=== PATIENT | male | born 1935 | race Caucasian/White ===

== ENCOUNTER 2019-10-10 20:27 | Inpatient (IN) | payer MEDICARE, OTHER ==
[2019-10-10] MEDS ORDERED: SODIUM CHLORIDE 0.9% (FLUSH) 10 ML SYG IV PRN (20:34)
--- NOTE | 2019-10-10 20:36 | ED.PDOC ---
History of Present Illness - General Time Seen by Provider: 10/10/19 20:34 Source: alf records - History of Present Illness Initial Comments: 84-year-old male with PMH of hypertension, COPD, dementia who was sent over from a alf in [place], [place] for cc of shortness of breath and hypoxia. Little is known about this patient's history at this time. Patient has underlying dementia and is very poor historian. He is awake and alert but only able to answer very simple yes/no questions. He currently reports some shortness of breath is his only complaint. He denies any pain, specifically chest pain or abdominal pain. He does give me consent to discuss his health care and medical records with his children. The alf transport team brought a document that states the patient was discharged from [facility] 2 days ago back to the alf in [place]. It is currently unknown why he was admitted to the hospital and for how long and what treatment he received there. The alf reports that he has had gradually worsening respiratory status since this afternoon. He has had reported hypoxia in the 70s to 80s% SPO2 all day long at the alf. He has also had intermittent episodes of hypotension. He has received Ativan 2 mg IV, a nebulized treatment, Decadron 8 mg IV, and Solu-Medrol 125 mg IV at the alf with little improvement in symptoms. Dr. Briones was called who stated the patient could be transported to our ED since he reported tested positive for COVID-19 recently, although there is no record in his chart of when the test was done. Patient is documented to have an out of hospital DNR in his chart. More information obtained from patient's son, Italo Cook ([phone]), shortly after patient arrival. He states that the patient had a seizure-like episode 1 week ago and was initially seen in the [place] ED. He was diagnosed with TIA and transferred up to [facility] for further care. There he was also diagnosed with acute bronchitis and confirmed positive for COVID-19 on 10/04/2019. He was also diagnosed with pneumonia and received antibiotics and steroids while he was in the hospital. He was discharged from there back to only alf on 10/08/2019. The son states this morning he had another seizure-like event and was brought back to [place] ED, where work-up was reportedly pretty unremarkable and patient was sent back to the alf. He reportedly continued to have intermittent episodes of hypoxia and low blood pressure at the alf. EMS was called out but reportedly his vital signs were stable and the decision was made not to transport the patient back to the ED there. Thus the nurses at the alf spoke with Dr. Briones who advised that the patient could be transported to the ED here for further evaluation. Son does report that the patient has history of pretty significant dementia, but is usually pleasant. He has recently been started on Keppra twice daily for seizure disorder. The only recent seizure activities that the son is aware of is the seizure today x1 and 1 week ago x1. The son does confirm the patient's DNR CODE STATUS over the phone with me. Allergies/Adverse Reactions: Allergies NO KNOWN ALLERGY Allergy (Verified 11/11/14 21:44) Home Medications: Ambulatory Orders Lisinopril 10 mg PO BID 11/11/14 Pindolol [Visken] 5 mg PO DAILY 11/11/14 Albuterol Sulfate Nebs [Proventil Nebs] 2.5 mg INH PRN PRN 10/11/19 Apixaban [Eliquis] 2.5 mg PO BID 10/11/19 Aspirin [Aspirin Childrens] 81 mg PO DAILY 10/11/19 Cetirizine HCl [ZyrTEC] 10 mg PO BEDTIME 10/11/19 Clonidine HCl 0.1 mg PO PRN 10/11/19 Dexamethasone 6 mg PO DAILY 10/11/19 Dextran 70-Hypromellose [Artificial Tears 0.1-0.3 %] 1 beatrice OP QID 10/11/19 Docusate Sodium 100 mg PO DAILY 10/11/19 Ferrous Sulfate 325 mg PO DAILY 10/11/19 Kpvgpqwvbvx-Ynquukheyqbk-Yxsaa [Trelegy Ellipta 100-62.5-25 Mcg/INH] 1 aer IN DAILY 10/11/19 Furosemide [Lasix] 20 mg PO DAILY 10/11/19 Guaifenesin [Mucinex] 600 mg PO BID 10/11/19 Ibuprofen 400 mg PO PRN PRN 10/11/19 Ketotifen Fumarate (Ophth) [Ketotifen Fumarate] 0.025 % OP BID 10/11/19 Levetiracetam [Keppra] 500 mg PO BID 10/11/19 Loperamide HCl [Imodium A-D] 2 mg PO PRN PRN 10/11/19 Meloxicam 7.5 mg PO DAILY 10/11/19 Sodium Chloride 1 gm PO DAILY 10/11/19 Zinc Sulfate 220 mg PO DAILY 10/11/19 Review of Systems - Review of Systems Review of Systems: 10/10/19 21:10 As per HPI All other Systems: Reviewed and Negative Past Medical History (General) - Patient Medical History Hx Seizures: No Hx Stroke: Yes - TIA Hx Dementia: Yes Hx Asthma: No Hx of COPD: No Hx Cardiac Disorders: Yes - left endartectomy 2009 Hx Congestive Heart Failure: No Hx Pacemaker: No Hx Hypertension: Yes Hx Thyroid Disease: No Hx Diabetes: No Hx Gastroesophageal Reflux: No Hx Renal Disease: No Hx of HIV: No Hx MRSA: No - Social History Hx Tobacco Use: Yes Hx Alcohol Use: No Hx Substance Use: No Hx Depression: Yes Hx Physical Abuse: No Hx Emotional Abuse: No Family Medical History - Family History Mother Family History: Unknown Living Status: Father Family History: Unknown Living Status: Physical Exam - Physical Exam General Appearance: Alert, Comfortable, No apparent distress Eye Exam: bilateral normal Ears, Nose, Throat: normal ENT inspection Neck: non-tender, full range of motion, supple, normal inspection Respiratory: other - Diminished throughout with faint bibasilar crackles noted, no wheezing or rhonchi appreciated. Patient with slightly labored breathing with tachypnea but no noted accessory muscle use Cardiovascular/Chest: normal peripheral pulses, regular rate, rhythm, no edema, no gallop, no murmur Peripheral Pulses: radial,right: 2+, radial,left: 2+ Gastrointestinal/Abdominal: non tender, soft, no organomegaly Back Exam: normal inspection, no CVA tenderness, no vertebral tenderness Extremity: normal range of motion, non-tender, normal inspection, no pedal edema, no calf tenderness, normal capillary refill Neurologic: animal rides manager II-XII nml as tested, no motor/sensory deficits, normal mood/affect, disoriented x 3 Skin Exam: normal color, warm/dry Progress - Progress Progress: 10/10/19 21:12 Acute hypoxic respiratory distress -Suspect due to COVID-19. Consider also pneumonia, sepsis, other viral illness, ACS, CHF, COPD, PE, other. -SPO2 80% on room air upon arrival-improved to 90% on 4 L by nasal cannula, remainder vital stable. -Obtain stat cardiac and sepsis work-up, respiratory panel, strep, UA, 1 L normal saline bolus 10/10/19 23:21 -Patient reexamined, remains in no distress. His SPO2 is 100% on nonrebreather O2 facemask. Blood pressure remains borderline low, 100s/40s, remainder vitals stable. -CT head imaging obtained given his recent seizure activity and history of TIAs. No acute processes noted, chronic ischemic changes noted. -Lab work reveals leukopenia with left shift. Inflammatory markers are elevated. Lactic acid level 1.5. This is consistent with COVID-19 pneumonia. Findings of CKD and mild LFT elevation also noted. -Spoke with Mckay Porras, hospitalist, who accepts the patient for admission for COVID-19 pneumonia causing acute hypoxia. I did give the patient an initial dose of IV Zosyn in the ED for broad-spectrum coverage given his hypoxia and hypotension. As there is no clear evidence of bacterial infection, will defer to hospitalist for further continuation of antibiotics. Mckay Porras states he will likely switch the patient to azithromycin given possible benefit in COVID- 19 patients. 10/11/19 00:31 -Respiratory panel collected here is also positive for COVID-19. Grover Stevenson MD Billing #[id number] 10/10/19 20:34 IV Care:Saline Lock per Protoc QSHIFT Telemetry .ONCE Sodium Chloride 0.9% (Flush) [Saline Flush Syringe] 10 ml IV PRN PRN Pulse Oximetry Assessment DAILY 10/10/19 20:45 EKG STAT 10/10/19 21:20 BLOOD CULTURE Stat 10/10/19 21:29 RESPIRATORY PANEL 2 Stat STREP A SCREEN CULTURE Stat 10/11/19 09:00 Pulse Ox Daily Laboratory Results - last 24 hr 10/10/19 10/10/19 10/10/19 21:20 21:20 21:20 WBC 2.7 L RBC 3.72 L Hgb 11.8 L Hct 35.1 L MCV 94.1 H MCH 31.7 H MCHC 33.7 RDW 14.2 Plt Count 137 MPV 9.6 Absolute Neuts (auto) 2.30 Absolute Lymphs (auto) 0.30 L Absolute Monos (auto) 0.10 L Absolute Eos (auto) 0.00 Absolute Basos (auto) 0.00 Neutrophils % 84.3 H Lymphocytes % 12.0 L Monocytes % 2.8 Eosinophils % 0.0 L Basophils % 0.9 Fibrinogen Sodium 138 Potassium 4.8 Chloride 108 Carbon Dioxide 20 L Anion Gap 14.8 BUN 45 H Creatinine 1.50 H BUN/Creatinine Ratio 30.0 H Random Glucose 137 H Serum Osmolality 289.4 Lactic Acid 1.5 Calcium 8.1 L Total Bilirubin 0.5 AST 73 H ALT 67 H Alkaline Phosphatase 65 LD Total C-Reactive Protein B-Natriuretic Peptide 20.6 Serum Total Protein 6.5 Albumin 3.6 Globulin 2.9 Albumin/Globulin Ratio 1.2 Group A Strep Rapid 10/10/19 10/10/19 10/10/19 21:20 21:20 21:29 WBC RBC Hgb Hct MCV MCH MCHC RDW Plt Count MPV Absolute Neuts (auto) Absolute Lymphs (auto) Absolute Monos (auto) Absolute Eos (auto) Absolute Basos (auto) Neutrophils % Lymphocytes % Monocytes % Eosinophils % Basophils % Fibrinogen 380 Sodium Potassium Chloride Carbon Dioxide Anion Gap BUN Creatinine BUN/Creatinine Ratio Random Glucose Serum Osmolality Lactic Acid Calcium Total Bilirubin AST ALT Alkaline Phosphatase LD Total 269 H C-Reactive Protein 4.1 H B-Natriuretic Peptide Serum Total Protein Albumin Globulin Albumin/Globulin Ratio Group A Strep Rapid Negative - EKG/XRAY/CT EKG: Sinus - Normal sinus rhythm, heart rate 65, no ST elevations or Q waves noted, axis normal, intervals normal, compared to 11/11/2014 EKG appears largely unchanged. XRAY: chest - Faint bilateral lower lobe hazy linear opacifications nonspecific in nature, atelectasis versus infiltrate, per my read Departure - Departure Clinical Impression: COVID-19, Pneumonia due to 2019 novel coronavirus, Hypoxia Time of Disposition: 23:21 Disposition: Admit Patient Condition: Poor Home Medications: Ambulatory Orders Lisinopril 10 mg PO BID 11/11/14 Pindolol [Visken] 5 mg PO DAILY 11/11/14 Albuterol Sulfate Nebs [Proventil Nebs] 2.5 mg INH PRN PRN 10/11/19 Apixaban [Eliquis] 2.5 mg PO BID 10/11/19 Aspirin [Aspirin Childrens] 81 mg PO DAILY 10/11/19 Cetirizine HCl [ZyrTEC] 10 mg PO BEDTIME 10/11/19 Clonidine HCl 0.1 mg PO PRN 10/11/19 Dexamethasone 6 mg PO DAILY 10/11/19 Dextran 70-Hypromellose [Artificial Tears 0.1-0.3 %] 1 beatrice OP QID 10/11/19 Docusate Sodium 100 mg PO DAILY 10/11/19 Ferrous Sulfate 325 mg PO DAILY 10/11/19 Pcsibglqnbf-Vebmaawckmdt-Rqjxw [Trelegy Ellipta 100-62.5-25 Mcg/INH] 1 aer IN DAILY 10/11/19 Furosemide [Lasix] 20 mg PO DAILY 10/11/19 Guaifenesin [Mucinex] 600 mg PO BID 10/11/19 Ibuprofen 400 mg PO PRN PRN 10/11/19 Ketotifen Fumarate (Ophth) [Ketotifen Fumarate] 0.025 % OP BID 10/11/19 Levetiracetam [Keppra] 500 mg PO BID 10/11/19 Loperamide HCl [Imodium A-D] 2 mg PO PRN PRN 10/11/19 Meloxicam 7.5 mg PO DAILY 10/11/19 Sodium Chloride 1 gm PO DAILY 10/11/19 Zinc Sulfate 220 mg PO DAILY 10/11/19 Decision To Admit - Decistion To Admit Decision to Admit Reason: Admit from ER Decision to Admit Date: 10/10/19 Decision to Admit Time: 23:21
[2019-10-10] MEDS ORDERED: SODIUM CHLORIDE 0.9% 1000ML 1,000 ML IVS ONE (21:03)
--- NOTE | 2019-10-10 21:50 | RAD ---
EXAM DESCRIPTION: Chest,1 View CLINICAL HISTORY: 84 years Male, dyspnea, hypoxia, COVID-19 COMPARISON: 11/11/2014 TECHNIQUE: Single AP chest radiograph. FINDINGS: Hazy bibasilar lung opacities. No pneumothorax or pleural effusion. Normal cardiomediastinal contour. Normal osseous structures. IMPRESSION: 1. Bibasilar lung opacities, concerning for viral pneumonitis. Electronically signed by: Woo Jefferson MD 10/10/2019 9:48 PM CDT
[2019-10-10] MEDS ORDERED: PIPERACILLIN/TAZOBACTAM 3.375 GM in SODIUM CHLORIDE 0.9% 100ML 100 ML IVPB ONE (22:15)
--- NOTE | 2019-10-10 23:23 | CT ---
EXAM: Head HISTORY: 84 years Male altered mental status, hx of TIA's, seizures COMPARISON: 11/11/2014 July 23, 2019. TECHNIQUE: Contiguous axial images of the head were obtained from the skull base through the vertex without IV contrast followed by multiplanar reformats. This exam was performed according to our departmental dose-optimization program, which includes automated exposure control, adjustment of the mA and/or kV according to patient size and/or use of iterative reconstruction technique. FINDINGS: Generalized parenchymal volume loss. No hydrocephalus. No midline shift, mass effect or abnormal extraaxial collection. No acute intracranial hemorrhage or infarct. Advanced scattered chronic microvascular ischemic white matter changes. 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 Intracranial atherosclerosis. Orbital contents are unremarkable. The paranasal sinuses and mastoid air cells are well pneumatized. No acute calvarial abnormality. IMPRESSION: 1. No acute intracranial pathology by CT assessment. Consider MRI. 2. Advanced chronic microangiopathic ischemic white matter changes and multiple old infarcts. Electronically signed by: Woo Jefferson MD 10/10/2019 11:21 PM CDT
--- NOTE | 2019-10-11 00:08 | HP ---
SUPERVISING PHYSICIAN: Sumit Briones M.D. CHIEF COMPLAINT: Hypoxia and hypertension. HISTORY OF PRESENT ILLNESS: Mr. Cook is an 84 year-old male patient who has a reported history of hypertension, chronic obstructive pulmonary disease and dementia. The patient is a resident of a longterm in [place], [place] who has dementia and is a very poor historian, therefore all of the History of Present Illness and review of systems were obtained through a review of the Emergency Room notes and longterm records. Mr. Cook resides at the longterm at [facility] in [place], [place]. He has a history of recurrent shortness of breath and hypoxia. He was actually sent to [facility] on 10/04/19 for a questionable seizure after he was seen in the Emergency Room in [place], [place]. He was treated for COVID pneumonia when he was found to have positive COVID test and was noted to have underlying community acquired pneumonia as well as bronchitis. He was treated with steroids, antibiotics and then discharged back to [place], [place] at the longterm on the . On 10/10/19, he had a seizure-like activity with no details noted, was taken back to the Emergency Room in [place] where he was found to be mildly hypoxic and hypertensive. He was treated and then transported back to the longterm. On 10/11/19, he continued to have hypoxia noted in the longterm in the 70s with some hypotension and then after discussion was taken to the Emergency Room there and again transported back to the longterm after they found that he had normal vital signs. Once again at the longterm after discharge from the Emergency Room there in [place], he again had some episodes of hypoxia and hypotension. The longterm at that point put him a transport van and took him to the Emergency Room at [facility] where he was seen and evaluated. He was once again found to be positive for COVID-19. His initial vital signs on the Emergency Room did show that he was satting 78% even with 2 liters nasal cannula. He had some mild hypotension with a blood pressure of 100/42 with a heart rate of 46 requiring nonrebreather showing 92% on 10 liters on the nonrebreather. His initial workup in the Emergency Room did show that he had neutropenia with a white count of 2.7 with decreased lymphocytes. Coagulation studies showed he had an elevated D-dimer at 750, fibrinogen was normal at 352, PTT was normal at 223. Chemistries showed that he had a BUN of 45, creatinine 1.5. Liver functions were showing some elevation of his AST and ALT. LDH was also elevated at 269 as well as C reactive protein at 4.1, but his troponin was 0.04. He was notably hypoxic and with a positive COVID and underlying pneumonia that was once again seen on x-ray that showed per radiology interpretation bibasilar lung opacities concerning for viral pneumonitis. He is going to be admitted to the COVID-19 floor and started on treatment for underlying COVID pneumonia having failed to respond to previous treatment plan. He was already on Eliquis at the longterm. He is in stable condition at time of admission and code status is a DNR. PAST MEDICAL HISTORY: Again is limited due to the fact that he has dementia and his system review is from medical records showed: 1. History of hypertension. 2. Chronic obstructive pulmonary disease. 3. Dementia. 4. Previous transient ischemic attack. 5. Previous COVID infection. PAST SURGICAL HISTORY: 1. Endarterectomy. CURRENT MEDICATIONS: ALLERGIES: FAMILY HISTORY: SOCIAL HISTORY: The patient resides in a longterm in [place], [place]. He is . He has no history of alcohol or tobacco abuse. REVIEW OF SYSTEMS: CONSTITUTIONAL: Positive for general malaise, reported subjective fever. No noted unintentional weight loss. HEENT: No reported ear aches, sore throat, nasal congestion, headaches or vision changes. RESPIRATORY: As noted in History of Present Illness, increasing shortness of breath with some reported wheezing and desaturations. CARDIOVASCULAR: No reported chest pains, syncopal episodes, tachycardia or palpitations. GASTROINTESTINAL: No reported nausea, vomiting, diarrhea, constipation or abdominal pain. GENITOURINARY: No reported dysuria, hematuria, polyuria. MUSCULOSKELETAL: No reported arthralgias or joint swelling. NEUROLOGIC: History of dementia with no reported ataxia, but has reportedly at some point in the last month had some seizure-like activity which was not described with a questionable transient ischemic attack. No reported residual focal deficits. SKIN: No reported lesions, rashes, moles or unexplained changes. HEMATOLOGIC: No reported easy bruising, unexplained bleeding or transfusion reactions. PHYSICAL EXAMINATION: VITAL SIGNS: Showed 78% O2 saturation with blood pressure 100/42, heart rate 42, temperature 97.2. GENERAL: The patient appears to be alert in no acute distress. HEENT: Tympanic membranes clear bilaterally. Oropharynx is pink, moist without any lesions. NECK: Supple, nontender with full range of motion. No jugular venous distention noted. CHEST: Lung sounds were diminished throughout with some faint basilar crackles noted. No obvious wheezing or rales or rhonchi. Initially on admission he did show some mild labored breathing with some tachypnea and being tachypneic, but was not in any obvious respiratory distress. HEART: Regular rate and rhythm with no appreciable murmurs, gallops, or rubs. ABDOMEN: Soft, nontender. Positive bowel sounds. EXTREMITIES: There is no cyanosis, clubbing or edema. BACK: With no noted CVA tenderness or vertebral tenderness. NEUROLOGIC: Cranial nerves II-XII appear to be grossly intact with no obvious sensory deficits. He is disoriented to all by himself, but is very pleasant. Again, no obvious neurological focal motor deficits are noted. SKIN: Warm, pink and dry. LABORATORY: White count on admission was 2,700, hemoglobin 11.8, hematocrit 35.1, platelet count 137,000. Differential does show a left shift with decreased neutrophils. Coagulation studies did show an elevated D-dimer at 770 but normal PTT at 23 and fibrinogen at 380. Chemistries showed normal electrolytes with BUN of 45, creatinine 1.5. Lactic acid was normal at 1.5, calcium was a little low at 8.1. Liver functions did show AST and ALT elevation with AST at 73 and ALT of 67. BNP was normal at 20 with initial C reactive protein at 4.1. Troponin was 0.04. Urinalysis was within normal limits. Group A Strep was negative. RADIOLOGY: Initial chest x-ray in the Emergency Room per radiology interpretation showed bibasilar lung opacities concerning for viral pneumonitis. ASSESSMENT: 1. COVID-19 pneumonitis. 2. Acute chronic obstructive pulmonary disease exacerbation with bilateral pneumonia secondary to #1. 3. Neutropenia likely secondary to ongoing COVID infection with an elevated D-dimer and C reactive protein currently on Eliquis. 4. History of dementia. 5. History of previous transient ischemic attack without any residual effects. 6. History of hypertension showing to be mildly hypertensive on admission. PLAN: Mr. Cook is going to be admitted to isolation on the COVID floor for initiation of COVID pneumonia protocols. He is already on Eliquis. Will go ahead and put him on antibiotic coverage with azithromycin and Rocephin. He will be on Decadron 6 mg daily. Will resume his home medications once those have been updated and verified. I would anticipate his length of stay to be at least 2 to 5 days. Will monitor his inflammatory markers and coagulation studies as per protocol. Until we can transition him back to outpatient management will continue to monitor and treat as needed. #[id number] [facility]
[2019-10-11] MEDS ORDERED: MAGNESIUM HYDROXIDE 30 ML UD PO PRN (00:44)
[2019-10-11] MEDS ORDERED: SODIUM CHLORIDE 0.9% (FLUSH) 10 ML SYG IV PRN (00:44)
[2019-10-11] MEDS ORDERED: ONDANSETRON INJ 4 MG/2 ML VIAL IV PRN (00:44)
[2019-10-11] MEDS ORDERED: ALBUTEROL INHALER 64 PUFF/8GM INH PRN (00:55)
[2019-10-11] MEDS ORDERED: levETIRAcetam 250 MG TAB PO ONE (00:59)
[2019-10-11] MEDS ORDERED: ENOXAPARIN SODIUM 40 MG/0.4 ML SYG SUBCU SCH (01:00)
[2019-10-11] MEDS ORDERED: cefTRIAXone SODIUM 1 GM VIAL ONE (02:18)
[2019-10-11] MEDS ORDERED: AZITHROMYCIN IV 500 MG VIAL IVPB ONE (02:18)
[2019-10-11] MEDS ORDERED: SODIUM CHLORIDE 0.9% 250ML 250 ML ONE (02:18)
[2019-10-11] MEDS ORDERED: SODIUM CHL 0.9% 50ML MIN-BAG+ 50 ML IVPB ONE (02:18)
[2019-10-11] MEDS: IV SET AND CAP CHANGE INJ INJ SCH (02:21)
[2019-10-11] MEDS: cefTRIAXone SODIUM 1 GM in SODIUM CHL 0.9% 50ML MIN-BAG+ 50 ML IVPB SCH ×2 (02:21→23:51)
[2019-10-11] MEDS: AZITHROMYCIN IV 500 MG in SODIUM CHLORIDE 0.9% 250ML 250 ML IVPB SCH (03:04)
[2019-10-11] MEDS: PANTOPRAZOLE SODIUM IV 40 MG VIAL IV SCH (06:31)
--- NOTE | 2019-10-11 07:23 | RAD ---
EXAM: XR Chest, 1 View CLINICAL HISTORY: The patient is 84 years old and is Male; COVID PNA TECHNIQUE: Single portable view of the chest. COMPARISON: October 10, 2019 9:22 PM. FINDINGS: Lungs: Unremarkable. No consolidation. Pleural space: Unremarkable. No pneumothorax. Heart: Unremarkable. No cardiomegaly. Mediastinum: Unremarkable. Bones/joints: The bones and joints are unchanged as visualized. Upper abdomen: No free air in the visualized upper abdomen. IMPRESSION: No acute cardiopulmonary process identified. Electronically signed by: Jasmyn Angelo MD 10/11/2019 7:22 AM CDT
[2019-10-11] MEDS: DEXAMETHASONE INJ 10 MG/ML VIAL IV SCH (09:34)
[2019-10-11] MEDS: DOCUSATE SODIUM 100 MG CAP PO SCH (09:34)
[2019-10-11] MEDS: LISINOPRIL 10 MG TAB PO SCH ×2 (09:34→21:39)
[2019-10-11] MEDS: levETIRAcetam 250 MG TAB PO SCH ×2 (09:35→21:07)
[2019-10-11] MEDS: guaiFENesin ER TAB 600 MG TAB PO SCH ×2 (09:35→21:39)
[2019-10-11] MEDS: APIXABAN 5 MG TAB PO SCH ×2 (09:35→21:39)
[2019-10-11] MEDS: ASPIRIN (CHEWABLE) 81 MG TAB PO SCH (09:35)
[2019-10-11] MEDS: FUROSEMIDE 40 MG TAB PO SCH (09:35)
[2019-10-11] MEDS: FERROUS SULFATE 325 MG TAB PO SCH (09:36)
[2019-10-11] MEDS: KETOTIFEN FUMARATE 0.025% OP SCH ×2 (09:36→21:39)
[2019-10-11] MEDS: ZINC 50 MG CAPSULE PO SCH (09:36)
[2019-10-11] MEDS: PINDOLOL 5 MG PO SCH (09:37)
[2019-10-11] MEDS: POLYVINYL ALCOHOL 1.4% OPHTH SOL 1 DROP BOTH_EYES SCH ×4 (09:37→21:39)
[2019-10-11] MEDS: ALBUTEROL INHALER 64 PUFF/8GM INH SCH ×4 (10:04→20:30)
[2019-10-11] MEDS ORDERED: ALPRAZolam 0.25 MG TAB PO ONE (15:34)
[2019-10-11] MEDS ORDERED: ALPRAZolam 0.25 MG TAB ONE (15:37)
[2019-10-11] MEDS ORDERED: CETIRIZINE HCL 10 MG TAB PO ONE (19:07)
[2019-10-11] MEDS: ALPRAZolam 0.25 MG TAB PO PRN (21:07)
[2019-10-11] MEDS: CETIRIZINE HCL 10 MG TAB PO SCH (21:39)
[2019-10-12] MEDS: AZITHROMYCIN IV 500 MG in SODIUM CHLORIDE 0.9% 250ML 250 ML IVPB SCH (00:21)
[2019-10-12] MEDS: PANTOPRAZOLE SODIUM IV 40 MG VIAL IV SCH (06:09)
[2019-10-12] MEDS: ALBUTEROL INHALER 64 PUFF/8GM INH SCH ×4 (08:35→22:00)
[2019-10-12] MEDS: FUROSEMIDE 40 MG TAB PO SCH (09:25)
[2019-10-12] MEDS: ASPIRIN (CHEWABLE) 81 MG TAB PO SCH (09:25)
[2019-10-12] MEDS: ZINC 50 MG CAPSULE PO SCH (09:26)
[2019-10-12] MEDS: DOCUSATE SODIUM 100 MG CAP PO SCH (09:26)
[2019-10-12] MEDS: FERROUS SULFATE 325 MG TAB PO SCH (09:26)
[2019-10-12] MEDS: LISINOPRIL 10 MG TAB PO SCH ×2 (09:26→20:13)
[2019-10-12] MEDS: guaiFENesin ER TAB 600 MG TAB PO SCH ×2 (09:26→20:13)
[2019-10-12] MEDS: APIXABAN 5 MG TAB PO SCH ×2 (09:26→20:14)
[2019-10-12] MEDS: levETIRAcetam 250 MG TAB PO SCH ×2 (09:27→20:13)
[2019-10-12] MEDS: DEXAMETHASONE INJ 10 MG/ML VIAL IV SCH (10:07)
[2019-10-12] MEDS: KETOTIFEN FUMARATE 0.025% OP SCH ×2 (10:07→23:27)
[2019-10-12] MEDS: PINDOLOL 5 MG PO SCH (10:08)
[2019-10-12] MEDS ORDERED: CARBOXYMETHYLCELLULOSE 0.5% OPHTH SOL 0.4 ML UD ONE (12:09)
[2019-10-12] MEDS: POLYVINYL ALCOHOL 1.4% OPHTH SOL 1 DROP BOTH_EYES SCH ×2 (12:12→14:46)
[2019-10-12] MEDS: CARBOXYMETHYLCELLULOSE 0.5% OPHTH SOL 0.4 ML UD OPHTH SCH ×2 (16:17→20:15)
[2019-10-12] MEDS: CETIRIZINE HCL 10 MG TAB PO SCH (20:14)
[2019-10-12] MEDS: cefTRIAXone SODIUM 1 GM in SODIUM CHL 0.9% 50ML MIN-BAG+ 50 ML IVPB SCH (23:31)
[2019-10-13] MEDS: AZITHROMYCIN IV 500 MG in SODIUM CHLORIDE 0.9% 250ML 250 ML IVPB SCH (00:03)
[2019-10-13] MEDS: PANTOPRAZOLE SODIUM IV 40 MG VIAL IV SCH (05:43)
--- NOTE | 2019-10-13 07:13 | RAD ---
EXAM: XR Chest, 1 View CLINICAL HISTORY: covid PNA TECHNIQUE: Frontal view of the chest. COMPARISON: 10/11/2019. FINDINGS: Lungs: Diffuse interstitial thickening is stable. There is increasing density left base partly related to overlapping shadows. Pleural space: Unremarkable. No pneumothorax. Heart: Stable cardiac shadow. Mediastinum: Unremarkable. Bones/joints: Unremarkable. IMPRESSION: Stable diffuse interstitial thickening and probable new focus of consolidation left lung base. Findings are nonspecific and can be seen with covid or other viral/atypical pneumonia. CT would better characterize if additional imaging is clinically warranted. Electronically signed by: Michaela Khoury MD 10/13/2019 7:11 AM CDT
[2019-10-13] MEDS: ALBUTEROL INHALER 64 PUFF/8GM INH SCH ×4 (07:50→20:30)
[2019-10-13] MEDS: ZINC 50 MG CAPSULE PO SCH (08:57)
[2019-10-13] MEDS: FUROSEMIDE 40 MG TAB PO SCH (08:57)
[2019-10-13] MEDS: ASPIRIN (CHEWABLE) 81 MG TAB PO SCH (08:57)
[2019-10-13] MEDS: LISINOPRIL 10 MG TAB PO SCH ×2 (08:57→20:27)
[2019-10-13] MEDS: CARBOXYMETHYLCELLULOSE 0.5% OPHTH SOL 0.4 ML UD OPHTH SCH ×2 (08:58→20:28)
[2019-10-13] MEDS: DOCUSATE SODIUM 100 MG CAP PO SCH (08:58)
[2019-10-13] MEDS: levETIRAcetam 250 MG TAB PO SCH ×2 (08:58→20:26)
[2019-10-13] MEDS: APIXABAN 5 MG TAB PO SCH ×2 (08:58→20:26)
[2019-10-13] MEDS: PINDOLOL 5 MG PO SCH (08:58)
[2019-10-13] MEDS: DEXAMETHASONE INJ 10 MG/ML VIAL IV SCH (08:58)
[2019-10-13] MEDS: FERROUS SULFATE 325 MG TAB PO SCH (08:58)
[2019-10-13] MEDS: guaiFENesin ER TAB 600 MG TAB PO SCH ×2 (08:58→20:27)
[2019-10-13] MEDS: KETOTIFEN FUMARATE 0.025% OP SCH ×2 (08:58→20:29)
--- NOTE | 2019-10-13 09:08 | PN ---
SUPERVISING PHYSICIAN: Sumit Briones MD DATE: 10/12/19 SUBJECTIVE: The patient seems to be doing okay. He is not really verbal and showed to be running a low-grade fever. He is maintaining 02 saturations with 2-liter nasal cannula fairly well. His blood pressure has been stable since admission. OBJECTIVE: VITAL SIGNS: Temperature 100.6, pulse 84, blood pressure 154/74, respirations 20, oxygen saturation 93% on 2-liter nasal cannula. GENERAL: The patient is resting comfortably and does not appear to be in any acute distress. CHEST: Lung sounds a little bit improved today, just diminished towards the bases. I do not hear any rhonchi, rales or crackles. HEART: Regular rate and rhythm. ABDOMEN: Soft, non-tender, positive bowel sounds. EXTREMITIES: Without edema. NEUROLOGIC: No obvious neurological deficits. He is very pleasant but is disoriented to all but himself. LABORATORY: White count is actually up to 4.6, hemoglobin 11.1, hematocrit 32.7, platelet count 155,000, differential does show to be without a shift, coagulation studies showed an elevation in D-dimer a little bit today at 783. Chemistries reveal normal electrolytes today with BUN of 36, creatinine now normalized at 1.2. Troponin 0.04, C-reactive protein down from 4.1 to 1.4. MICROBIOLOGY: Blood cultures pending. RADIOLOGY: No additional radiographic studies today. ASSESSMENT: 1. COVID-19 pneumonitis. 2. Acute chronic obstructive pulmonary disease exacerbation with bilateral pneumonia secondary to #1. 3. Neutropenia likely secondary to ongoing COVID infection with an elevated D-dimer and C reactive protein currently on Eliquis. 4. History of dementia. 5. History of previous transient ischemic attack without any residual effects. 6. History of hypertension showing to be mildly hypertensive on admission. PLAN: We will continue with current plan of care at this point with our pneumonia protocol for Covid. He will remain on Eliquis and will continue with that dose. Will monitor and treat with Rocephin and Decadron. His lab it showing some slightly improvement. I would hope we could be able to discharge him back to [facility] within the next 24 to 48 hours but certainly will monitor his labs and treat accordingly until we can. #[id number] MTDD
[2019-10-13] MEDS ORDERED: VANCOMYCIN PER PHARMACY INJ SCH (10:30)
[2019-10-13] MEDS ORDERED: CEFEPIME 2 GM VIAL ONE (12:08)
[2019-10-13] MEDS: VANCOMYCIN HCL INJ 750 MG in SODIUM CHLORIDE 0.9% 250ML 250 ML IVPB SCH (16:42)
[2019-10-13] MEDS: CETIRIZINE HCL 10 MG TAB PO SCH (20:27)
[2019-10-14] MEDS: cefTRIAXone SODIUM 1 GM in SODIUM CHL 0.9% 50ML MIN-BAG+ 50 ML IVPB SCH (00:09)
[2019-10-14] MEDS: AZITHROMYCIN IV 500 MG in SODIUM CHLORIDE 0.9% 250ML 250 ML IVPB SCH (00:51)
[2019-10-14] MEDS: IV SET AND CAP CHANGE INJ INJ SCH (01:01)
[2019-10-14] MEDS: PANTOPRAZOLE SODIUM IV 40 MG VIAL IV SCH (06:19)
[2019-10-14] MEDS: ACETAMINOPHEN 325 MG TAB PO PRN (06:19)
--- NOTE | 2019-10-14 07:14 | RAD ---
: 1935. Technique: Portable AP chest x-ray. Comparison: October 13, 2019. November 11, 2014. Clinical history: covid PNA. Heart size: Heart size is within normal limits. Lungs: There is diffuse septal prominence consistent with interstitial pneumonitis and possible component of background interstitial scarring. Note is made of attenuation at the left base due to the patient's hand. Pleura: No pleural effusion. No pneumothorax. Mediastinum and tenzin: Unremarkable. Skeletal: Unremarkable. Support tubings: None. Impression: 1. Interstitial pneumonitis. Electronically signed by: Louis Parry MD 10/14/2019 7:13 AM CDT
[2019-10-14] MEDS: ALBUTEROL INHALER 64 PUFF/8GM INH SCH ×4 (08:00→21:03)
--- NOTE | 2019-10-14 08:27 | PN ---
SUPERVISING PHYSICIAN: Sumit Briones MD DATE: 10/13/19 SUBJECTIVE: The patient is doing well. He is still maintaining O2 saturations on 2 liters nasal cannula without any complaints. He has had some episodes of confusion, but otherwise is doing well. OBJECTIVE: VITAL SIGNS: Temperature 98.9, pulse 69, blood pressure 130/70, respirations 20, oxygen saturation 94% on 2-liter nasal cannula. GENERAL: The patient is resting comfortably and does not appear to be in any acute distress. CHEST: Lung sounds a little bit improved today, just diminished towards the bases. I do not hear any rhonchi, rales or crackles. HEART: Regular rate and rhythm. ABDOMEN: Soft, nontender, positive bowel sounds. EXTREMITIES: No edema. NEUROLOGIC: No obvious neurological deficits. He is very pleasant but is disoriented to all but himself. LABORATORY: White count 4,300, hemoglobin stable at 11.2, hematocrit 33.1, platelet count 162,000. Differential is without a left shift. Coagulation studies show D-dimer is staying fairly stable, but elevated at 73. Today's is pending. Chemistries show increase in C-reactive protein at 8.6 compared to admission of 4.1. Otherwise, liver functions are within normal limits as well as his electrolytes. Troponin 0.03. MICROBIOLOGY: Group A Strep cultures pending. Blood cultures pending. RADIOLOGY: Repeat chest x-ray today per radiologic interpretation shows stable diffuse interstitial thickening and probable new focus of consolidation in left lung base. Please see that report for details. ASSESSMENT: 1. COVID-19 pneumonitis. 2. Acute chronic obstructive pulmonary disease exacerbation with bilateral pneumonia secondary to #1 with elevating C-reactive protein despite treatment. 3. Neutropenia likely secondary to ongoing COVID infection with an elevated D-dimer and C-reactive protein currently on Eliquis. 4. History of dementia. 5. History of previous transient ischemic attack without any residual effects. 6. History of hypertension showing to be mildly hypertensive on admission. PLAN: We will continue with current plan of care at this point with Decadron. He remains on Eliquis already. We will treat him with Rocephin as well as azithromycin per protocol. I am not sure why his C-reactive protein elevated overnight. His x-ray seems to be fairly stable, but the recommendation to fully characterize findings on the chest x-ray, consideration for CT of the chest. We will repeat a chest x-ray in the morning and clinically assess him and may need to do a chest CT at that point. Until the patient can transition to outpatient management, we will continue to follow his labs and trending on his inflammatory markers before we send him home. Until then, we will continue to monitor and treat as needed. #[id number] MTDD
[2019-10-14] MEDS: ZINC 50 MG CAPSULE PO SCH (08:37)
[2019-10-14] MEDS: LISINOPRIL 10 MG TAB PO SCH ×2 (08:37→21:04)
[2019-10-14] MEDS: ASPIRIN (CHEWABLE) 81 MG TAB PO SCH (08:38)
[2019-10-14] MEDS: FUROSEMIDE 40 MG TAB PO SCH (08:38)
[2019-10-14] MEDS: levETIRAcetam 250 MG TAB PO SCH ×2 (08:38→21:02)
[2019-10-14] MEDS: FERROUS SULFATE 325 MG TAB PO SCH (08:38)
[2019-10-14] MEDS: guaiFENesin ER TAB 600 MG TAB PO SCH ×2 (08:38→21:03)
[2019-10-14] MEDS: APIXABAN 5 MG TAB PO SCH ×2 (08:38→21:01)
[2019-10-14] MEDS: DOCUSATE SODIUM 100 MG CAP PO SCH (08:38)
[2019-10-14] MEDS: DEXAMETHASONE INJ 10 MG/ML VIAL IV SCH (08:38)
[2019-10-14] MEDS: CARBOXYMETHYLCELLULOSE 0.5% OPHTH SOL 0.4 ML UD OPHTH SCH ×2 (08:39→21:05)
[2019-10-14] MEDS: KETOTIFEN FUMARATE 0.025% OP SCH ×2 (08:39→21:05)
[2019-10-14] MEDS: PINDOLOL 5 MG PO SCH (08:39)
[2019-10-14] MEDS: VANCOMYCIN HCL INJ 750 MG in SODIUM CHLORIDE 0.9% 250ML 250 ML IVPB SCH (10:02)
--- NOTE | 2019-10-14 15:30 | PN ---
SUPERVISING PHYSICIAN: Sumit Briones M.D. DATE: 10/14/19 SUBJECTIVE: The patient is lying in bed asleep. He awakens easily. He has continued to maintain his saturations on his oxygen. There were reports by nursing that he has had some episodes of confusion in the evening, but otherwise it is slowly improving. OBJECTIVE: VITAL SIGNS: Temperature 98.1, heart rate 81, blood pressure 120/71, respiratory rate 18 to 22, O2 saturation 90 to 92% on 3 liters nasal cannula. RESPIRATORY: Diminished breath sounds at the bases. Otherwise clear to auscultation. CARDIAC: Regular rate and rhythm. GASTROINTESTINAL: Abdomen is soft, nondistended. Bowel sounds are positive. NEUROLOGIC: He is oriented to person only, but otherwise pleasant. LABORATORY: CBC shows a WBC of 4.3 with hemoglobin 18.8, hematocrit 34.6, lymphocytes are low at 70 and 17.1%. Electrolytes are basically within normal limits with the exception of his calcium is low at 8.2. CRP has worsened and increased to 9.8. Chest x-ray shows interstitial pneumonitis. All other labs and films have been reviewed via the EMR. ASSESSMENT: 1. COVID-19 pneumonitis. 2. Acute chronic obstructive pulmonary disease exacerbation with bilateral pneumonia secondary to #1 with elevating C-reactive protein despite treatment. 3. Neutropenia likely secondary to ongoing COVID infection with an elevated D-dimer and C-reactive protein currently on Eliquis. 4. History of dementia. 5. History of previous transient ischemic attack without any residual effects. 6. History of hypertension showing to be mildly hypertensive on admission. PLAN: We will continue present supportive care. I will follow his cultures as well as his COVID lab. I have repeated his routine lab as well as his D-dimer, fibrinogen, CRP and LDH for in the morning. I have also opted to do a CT of his chest tomorrow morning. I have encouraged good pulmonary hygiene. Will watch his clinical progress and hopefully he can be discharged in the next 48 to 72 hours. #[id number] [facility]
[2019-10-14] MEDS: ALPRAZolam 0.25 MG TAB PO PRN (17:10)
[2019-10-14] MEDS: CETIRIZINE HCL 10 MG TAB PO SCH (21:02)
[2019-10-15] MEDS: cefTRIAXone SODIUM 1 GM in SODIUM CHL 0.9% 50ML MIN-BAG+ 50 ML IVPB SCH ×2 (00:01→23:48)
[2019-10-15] MEDS: AZITHROMYCIN IV 500 MG in SODIUM CHLORIDE 0.9% 250ML 250 ML IVPB SCH (00:34)
[2019-10-15] MEDS: VANCOMYCIN HCL INJ 750 MG in SODIUM CHLORIDE 0.9% 250ML 250 ML IVPB SCH ×3 (03:00→22:24)
[2019-10-15] MEDS: PANTOPRAZOLE SODIUM IV 40 MG VIAL IV SCH (06:40)
--- NOTE | 2019-10-15 07:32 | CT ---
Study: CT Chest. Indication: covid Technique: CT imaging of the chest obtained without intravenous administration of contrast. This exam was performed according to our departmental dose-optimization program, which includes automated exposure control, adjustment of the mA and/or kV according to patient size and/or use of iterative reconstruction technique. Comparison: None Findings: Pronounced atherosclerosis great vessels, aorta, carotid arteries. Along the right lateral margin of the descending thoracic aorta there is an ovoid 4.4 cm soft tissue density lesion with mild peripheral calcification. This is concerning for exophytic aneurysm from the aorta. It abuts the posterior margin of the heart and esophagus. No pathologically enlarged lymphadenopathy. Degenerative changes of the spine noted. Severe emphysema. There are patchy areas of mild groundglass attenuation and interstitial thickening throughout the bilateral lungs. Change most pronounced at the central aspects of the upper lobes and the dependent portion of the lower lobes. This is concerning for pneumonia. COVID-19 could give this appearance. No pleural effusion or pneumothorax identified. Impression: Severe emphysema with groundglass opacities scattered throughout the lungs as well as interstitial prominence concerning for pneumonia. COVID-19 could give this appearance. 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 Further characterization with CTA of the aorta recommended. Vascular surgery consultation recommended. Additional findings as above. Findings and recommendations on this exam were relayed to the patient's charge nurse, Toi Glover, at 10/15/2019 7:29 AM CDT. Electronically signed by: Demetrio Bennett MD 10/15/2019 7:30 AM CDT
[2019-10-15] MEDS ORDERED: MAGNESIUM SULFATE PREMIX 2GM 2 GM in PREMIX BAG 1 BAG IVPB ONE (08:21)
[2019-10-15] MEDS: ALBUTEROL INHALER 64 PUFF/8GM INH SCH ×4 (08:27→21:00)
--- NOTE | 2019-10-15 08:56 | CT ---
EXAM DESCRIPTION: CTA Chest CLINICAL HISTORY: 84 years Male, Possible aneurysm TECHNIQUE: Volumetric CT angiographic data acquisition of the thorax was obtained. Standard axial and CT angiographic MIP sagittal and coronal images are submitted. This exam was performed according to our departmental dose-optimization program, which includes automated exposure control, adjustment of the mA and/or kV according to patient size and/or use of iterative reconstruction technique. COMPARISON: Same day CT FINDINGS: No axillary adenopathy. 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 No evidence of acute process in the visualized upper abdomen. Trace pericardial fluid. No mediastinal adenopathy. The main pulmonary artery is grossly unremarkable. No pneumothorax. No significant pleural effusion. Similar emphysema and groundglass airspace disease. No acute or suspicious osseous abnormality. Scattered degenerative changes present. IMPRESSION: 1. 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 Recommend surgical consultation. 2. Similar severe emphysema with groundglass airspace disease which can be seen with viral pneumonia, to include COVID-19. Findings discussed with the patients nurse at 851 AM 10.15.19 Electronically signed by: Kristian Gary MD 10/15/2019 8:54 AM CDT
[2019-10-15] MEDS: ASPIRIN (CHEWABLE) 81 MG TAB PO SCH (09:45)
[2019-10-15] MEDS: ZINC 50 MG CAPSULE PO SCH (09:45)
[2019-10-15] MEDS: LISINOPRIL 10 MG TAB PO SCH ×2 (09:45→20:25)
[2019-10-15] MEDS: DOCUSATE SODIUM 100 MG CAP PO SCH (09:45)
[2019-10-15] MEDS: FERROUS SULFATE 325 MG TAB PO SCH (09:45)
[2019-10-15] MEDS: DEXAMETHASONE INJ 10 MG/ML VIAL IV SCH (09:45)
[2019-10-15] MEDS: guaiFENesin ER TAB 600 MG TAB PO SCH ×2 (09:45→20:25)
[2019-10-15] MEDS: levETIRAcetam 250 MG TAB PO SCH ×2 (09:46→20:24)
[2019-10-15] MEDS: KETOTIFEN FUMARATE 0.025% OP SCH ×2 (09:46→20:24)
[2019-10-15] MEDS: FUROSEMIDE 40 MG TAB PO SCH (09:46)
[2019-10-15] MEDS: APIXABAN 5 MG TAB PO SCH ×2 (09:46→20:23)
[2019-10-15] MEDS: CARBOXYMETHYLCELLULOSE 0.5% OPHTH SOL 0.4 ML UD OPHTH SCH ×2 (09:46→20:25)
[2019-10-15] MEDS: PINDOLOL 5 MG PO SCH (09:47)
[2019-10-15] MEDS: CETIRIZINE HCL 10 MG TAB PO SCH (20:25)
[2019-10-16] MEDS: AZITHROMYCIN IV 500 MG in SODIUM CHLORIDE 0.9% 250ML 250 ML IVPB SCH (00:19)
[2019-10-16] MEDS: PANTOPRAZOLE SODIUM IV 40 MG VIAL IV SCH (06:04)
[2019-10-16] MEDS ORDERED: VANCOMYCIN PER PHARMACY IVPB SCH (08:00)
[2019-10-16] MEDS: ALBUTEROL INHALER 64 PUFF/8GM INH SCH ×4 (08:30→20:30)
[2019-10-16] MEDS: DEXAMETHASONE INJ 10 MG/ML VIAL IV SCH (08:56)
[2019-10-16] MEDS: VANCOMYCIN HCL INJ 750 MG in SODIUM CHLORIDE 0.9% 250ML 250 ML IVPB SCH ×2 (08:57→20:17)
[2019-10-16] MEDS: levETIRAcetam 250 MG TAB PO SCH ×2 (08:57→20:16)
[2019-10-16] MEDS: ZINC 50 MG CAPSULE PO SCH (08:57)
[2019-10-16] MEDS: FERROUS SULFATE 325 MG TAB PO SCH (08:57)
[2019-10-16] MEDS: guaiFENesin ER TAB 600 MG TAB PO SCH ×2 (08:57→20:16)
[2019-10-16] MEDS: FUROSEMIDE 40 MG TAB PO SCH (08:57)
[2019-10-16] MEDS: DOCUSATE SODIUM 100 MG CAP PO SCH (08:58)
[2019-10-16] MEDS: ASPIRIN (CHEWABLE) 81 MG TAB PO SCH (08:58)
[2019-10-16] MEDS: LISINOPRIL 10 MG TAB PO SCH ×2 (08:58→20:16)
[2019-10-16] MEDS: APIXABAN 5 MG TAB PO SCH ×2 (08:58→20:16)
[2019-10-16] MEDS: KETOTIFEN FUMARATE 0.025% OP SCH ×3 (08:58→20:16)
[2019-10-16] MEDS: CARBOXYMETHYLCELLULOSE 0.5% OPHTH SOL 0.4 ML UD OPHTH SCH ×2 (08:59→20:17)
[2019-10-16] MEDS: PINDOLOL 5 MG PO SCH (08:59)
--- NOTE | 2019-10-16 09:29 | PN ---
SUPERVISING PHYSICIAN: Sumit Briones M.D. DATE: 10/15/19 SUBJECTIVE: The patient is lying in bed. He is confused. He is able to answer some simple yes/no questions without problem. Nursing has no problems to report. OBJECTIVE: VITAL SIGNS: Temperature 97.7, heart rate 78, blood pressure 120/78, respiratory rate 20, O2 saturation 95% on 3 liters nasal cannula. RESPIRATORY: Essentially clear to auscultation bilaterally. Somewhat diminished with a few scattered rhonchi. CARDIAC: Regular rate and rhythm. GASTROINTESTINAL: Abdomen is soft, nondistended. Bowel sounds are positive. NEUROLOGIC: He is awake and alert, oriented to person only. LABORATORY: CBC shows a white count of 4,800, with hemoglobin 12, hematocrit 34.4, lymphocytes are low at 0.6 and 12.9%. Fibrinogen is slightly elevated at 486 and his D-dimer has also increased. Chemistries show electrolytes are basically within normal limits with the exception of his calcium is low at 8.0, magnesium 1.7, LDH 265, CRP is 9.5. Chest CT shows severe emphysema with ground glass opacities scattered throughout the lungs as well as interstitial prominence concerning for pneumonia, Covid-19 could give this appearance. 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 Further characterization with CTA is recommended. Vascular surgery consult also recommended. CTA of the chest shows: 1. 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 2. Severe emphysema ground glass airspace which can be seen with viral pneumonia or Covid-19. All other labs and films have been reviewed via the EMR. ASSESSMENT: 1. COVID-19 pneumonitis. 2. Acute chronic obstructive pulmonary disease exacerbation with bilateral pneumonia secondary to #1 with elevating C-reactive protein despite treatment. 3. Neutropenia likely secondary to ongoing COVID infection with an elevated D-dimer and C-reactive protein currently on Eliquis. 4. History of dementia. 5. History of previous transient ischemic attack without any residual effects. 6. History of hypertension showing to be mildly hypertensive on admission. PLAN: We will continue present supportive care. I have talked at length to the patient's [id number] who has medical [id number]. He is a DNR and they would like to continue routine treatment but want no heroic measures completed. They are aware of his aneurysm and that his prognosis is very poor. I have ordered for in the morning including a routine Covid-19 lab. I have also given him some potassium supplementation and we will continue to monitor him closely and follow as needed. #[id number] MTDD
[2019-10-16] MEDS: ALPRAZolam 0.25 MG TAB PO PRN ×2 (15:37→21:40)
--- NOTE | 2019-10-16 15:48 | PN ---
SUPERVISING PHYSICIAN: Sumit Briones M.D. DATE: 10/16/19 SUBJECTIVE: The patient is lying in bed. He is more awake. It is reported by nursing that he has progressively improved with his mental status, although he has gotten confused and he did pull his Aparicio catheter out. Otherwise, no problems have been reported. OBJECTIVE: VITAL SIGNS: Temperature 98.8, heart rate 74, blood pressure 108/68, respiratory rate 150, O2 saturation 90% on 3 liters nasal cannula. RESPIRATORY: Diminished breath sounds throughout with a few scattered rhonchi. CARDIAC: Regular rate and rhythm. NEUROLOGIC: He is awake, oriented to person only but very pleasant. LABORATORY: WBC 4.8 with hemoglobin 11/.4, hematocrit 32.5. Fibrinogen has gone up slightly to 497 and his D-dimer has also gone up to 1,990. Electrolytes are basically within normal limits except calcium is low at 8.2. LDH is slightly improved to 237, CRP has gone up slightly to 10.4. Preliminary blood cultures show no growth at 5 days. All other labs and films have been reviewed via the EMR. ASSESSMENT: 1. COVID-19 pneumonitis. 2. Acute chronic obstructive pulmonary disease exacerbation with bilateral pneumonia secondary to #1 with elevating C-reactive protein despite treatment. 3. Neutropenia likely secondary to ongoing COVID infection with an elevated D-dimer and C-reactive protein currently on Eliquis. 4. History of dementia. 5. History of previous transient ischemic attack without any residual effects. 6. History of hypertension showing to be mildly hypertensive on admission. PLAN: We will continue present supportive care. I will again follow his lab tomorrow, especially given that most of his labs have slightly worsened. I will also do a chest x-ray. Will need to check to see if he has a chronic Aparicio catheter but at this point, his confusion will keep it and monitor it closely. Will also find out if it should be discontinued or if [facility]. I have also given him some Align. He is on Eliquis at 2.5 b.i.d. and I am not sure that we should increase that in spite of his coagulation studies though slightly worsened but will reevaluate that tomorrow as I may have to go up on his Eliquis. For now, it should be adequate for any clotting issues. We will continue to monitor him closely and follow as needed. #[id number] [facility]
[2019-10-16] MEDS: ACETAMINOPHEN 325 MG TAB PO PRN (20:15)
[2019-10-16] MEDS: diphenhydrAMINE HCL 25 MG CAP PO PRN (20:15)
[2019-10-16] MEDS: CETIRIZINE HCL 10 MG TAB PO SCH (20:16)
[2019-10-16] MEDS: BIFIDOBACTERIUM INFANTIS 4 MG CAP PO SCH (20:20)
[2019-10-16] MEDS: cefTRIAXone SODIUM 1 GM in SODIUM CHL 0.9% 50ML MIN-BAG+ 50 ML IVPB SCH (23:55)
[2019-10-17] MEDS: AZITHROMYCIN IV 500 MG in SODIUM CHLORIDE 0.9% 250ML 250 ML IVPB SCH (00:34)
[2019-10-17] MEDS: IV SET AND CAP CHANGE INJ INJ SCH (00:34)
[2019-10-17] MEDS: diphenhydrAMINE HCL 25 MG CAP PO PRN (02:44)
[2019-10-17] MEDS: ALPRAZolam 0.25 MG TAB PO PRN (03:40)
[2019-10-17] MEDS: PANTOPRAZOLE SODIUM IV 40 MG VIAL IV SCH (06:00)
[2019-10-17] MEDS: ALBUTEROL INHALER 64 PUFF/8GM INH SCH ×4 (08:05→20:40)
[2019-10-17] MEDS: APIXABAN 5 MG TAB PO SCH ×2 (09:13→20:42)
[2019-10-17] MEDS: DEXAMETHASONE INJ 10 MG/ML VIAL IV SCH (09:13)
[2019-10-17] MEDS: ASPIRIN (CHEWABLE) 81 MG TAB PO SCH (09:13)
[2019-10-17] MEDS: BIFIDOBACTERIUM INFANTIS 4 MG CAP PO SCH ×2 (09:13→20:41)
[2019-10-17] MEDS: FERROUS SULFATE 325 MG TAB PO SCH (09:13)
[2019-10-17] MEDS: DOCUSATE SODIUM 100 MG CAP PO SCH (09:13)
[2019-10-17] MEDS: KETOTIFEN FUMARATE 0.025% OP SCH ×2 (09:14→20:42)
[2019-10-17] MEDS: PINDOLOL 5 MG PO SCH (09:14)
[2019-10-17] MEDS: FUROSEMIDE 40 MG TAB PO SCH (09:14)
[2019-10-17] MEDS: LISINOPRIL 10 MG TAB PO SCH ×2 (09:14→20:41)
[2019-10-17] MEDS: guaiFENesin ER TAB 600 MG TAB PO SCH ×2 (09:14→20:41)
[2019-10-17] MEDS: CARBOXYMETHYLCELLULOSE 0.5% OPHTH SOL 0.4 ML UD OPHTH SCH ×2 (09:14→20:43)
[2019-10-17] MEDS: levETIRAcetam 250 MG TAB PO SCH (09:14)
[2019-10-17] MEDS: ZINC 50 MG CAPSULE PO SCH (09:15)
[2019-10-17] MEDS: levETIRAcetam SUSPENSION 100 MG/ML BTTL PO SCH ×2 (10:06→20:42)
[2019-10-17] MEDS: VANCOMYCIN HCL INJ 500 MG in SODIUM CHLORIDE 0.9% 100ML 100 ML IVPB SCH ×2 (10:15→20:33)
[2019-10-17] MEDS ORDERED: VANCOMYCIN HCL INJ 500 MG VIAL ONE (10:29)
[2019-10-17] MEDS ORDERED: SODIUM CHLORIDE 0.9% 100ML 100 ML IVPB ONE (10:29)
--- NOTE | 2019-10-17 11:14 | RAD ---
EXAM: Chest,1 View CLINICAL INDICATION: COVID-19 COMPARISON: 10/14/2019 FINDINGS: A single view of the chest was obtained. The heart size is normal. The pulmonary vascularity is unremarkable. Bilateral perihilar infiltrates most prominent in the left upper lobe are worse than the previous study. There is no pneumothorax or pleural effusion. IMPRESSION: Worsening bilateral infiltrates especially in the left upper lobe, consistent with pneumonia. Electronically signed by: Woo Mejia MD 10/17/2019 11:13 AM CDT
[2019-10-17] MEDS: VANCOMYCIN HCL INJ 750 MG in SODIUM CHLORIDE 0.9% 250ML 250 ML IVPB SCH (12:07)
[2019-10-17] MEDS: CETIRIZINE HCL 10 MG TAB PO SCH (20:41)
--- NOTE | 2019-10-17 20:41 | PN ---
SUPERVISING PHYSICIAN: Sumit Briones MD DATE: 10/17/19 SUBJECTIVE: The patient is lying in bed. He is fairly lethargic, although he does open his eyes and follows commands. OBJECTIVE: VITAL SIGNS: Temperature 98..4, heart rate 78, blood pressure 125/76, respiratory rate 16, oxygen saturation 92% on 2 liters nasal cannula. He frequently has to go up to 3.5 liters. RESPIRATORY: Diminished throughout with a few scattered rhonchi, very diminished at the bases. CARDIAC: Regular rate and rhythm. NEUROLOGICAL: He is awake but lethargic. LABORATORY CBC shows WBC of 6.6 with hemoglobin of 11.8, hematocrit 34.6. Fibrinogen is unchanged at 497, D-dimer is pending. Yesterday was 1,990. Electrolytes are basically within normal limits with the exception calcium is slightly low at 8.2. LDH is somewhat higher today at 284, C-reactive protein is slightly improved to 7.1 Chest x-ray: worsening bilateral infiltrates, especially in the left upper lobe consistent with pneumonia. All other labs and films have been reviewed via the EMR. ASSESSMENT: 1. COVID-19 pneumonitis. 2. Acute chronic obstructive pulmonary disease exacerbation with bilateral pneumonia secondary to #1 with elevating C-reactive protein despite treatment. 3. Neutropenia likely secondary to ongoing COVID infection with an elevated D-dimer and C-reactive protein currently on Eliquis. 4. History of dementia. 5. History of previous transient ischemic attack without any residual effects. 6. History of hypertension showing to be mildly hypertensive on admission. PLAN: We will continue present supportive care. At this point his prognosis is fairly poor so most likely we will need to keep his Aparicio catheter for comfort measures when he returns to the senior living in [place]. His lab is not improving as I would like and his chest x-ray is somewhat worse. We will repeat his lab and chest x-ray in the morning. They do have a Covid Crawford at the senior living in [place] so he may need to be discharged there. Hopefully, he can be discharged in the next 2 to 3 days. We will continue to monitor him closely and follow as needed. #[id number] MTDD
[2019-10-18] MEDS: cefTRIAXone SODIUM 1 GM in SODIUM CHL 0.9% 50ML MIN-BAG+ 50 ML IVPB SCH (00:09)
[2019-10-18] MEDS: AZITHROMYCIN IV 500 MG in SODIUM CHLORIDE 0.9% 250ML 250 ML IVPB SCH (00:43)
[2019-10-18] MEDS: ALPRAZolam 0.25 MG TAB PO PRN (02:34)
[2019-10-18] MEDS: PANTOPRAZOLE SODIUM IV 40 MG VIAL IV SCH (05:37)
--- NOTE | 2019-10-18 07:11 | RAD ---
EXAMINATION: Chest x-ray one view. INDICATION: Covid positive COMPARISON: October 17, 2019 TECHNIQUE: Frontal radiograph chest. FINDINGS: Overlying EKG leads and wires obscure portions of the lungs. The cardiac silhouette is normal in size. Slight interval improvement in right midlung zone and left mid and upper lung zone airspace opacities. There is no pleural effusion. There is no pneumothorax. IMPRESSION: Slight interval improvement in bilateral patchy airspace opacities. Electronically signed by: Kenney Miller MD 10/18/2019 7:09 AM CDT
[2019-10-18] MEDS ORDERED: VANCOMYCIN HCL INJ 1,000 MG, VANCOMYCIN HCL INJ 250 MG in SODIUM CHLORIDE 0.9% 250ML 25... IVPB SCH (09:00)
[2019-10-18] MEDS: ALBUTEROL INHALER 64 PUFF/8GM INH SCH ×3 (09:06→20:19)
[2019-10-18] MEDS: ZINC 50 MG CAPSULE PO SCH (10:53)
[2019-10-18] MEDS: FUROSEMIDE 40 MG TAB PO SCH (10:53)
[2019-10-18] MEDS: DEXAMETHASONE INJ 10 MG/ML VIAL IV SCH (10:53)
[2019-10-18] MEDS: guaiFENesin ER TAB 600 MG TAB PO SCH (10:53)
[2019-10-18] MEDS: DOCUSATE SODIUM 100 MG CAP PO SCH (10:53)
[2019-10-18] MEDS: FERROUS SULFATE 325 MG TAB PO SCH (10:54)
[2019-10-18] MEDS: LISINOPRIL 10 MG TAB PO SCH (10:54)
[2019-10-18] MEDS: BIFIDOBACTERIUM INFANTIS 4 MG CAP PO SCH (10:54)
[2019-10-18] MEDS: APIXABAN 5 MG TAB PO SCH (10:54)
[2019-10-18] MEDS: ASPIRIN (CHEWABLE) 81 MG TAB PO SCH (10:54)
[2019-10-18] MEDS: CARBOXYMETHYLCELLULOSE 0.5% OPHTH SOL 0.4 ML UD OPHTH SCH (10:58)
[2019-10-18] MEDS: KETOTIFEN FUMARATE 0.025% OP SCH (10:58)
[2019-10-18] MEDS: PINDOLOL 5 MG PO SCH (10:58)
[2019-10-18] MEDS: levETIRAcetam SUSPENSION 100 MG/ML BTTL PO SCH (10:58)
[2019-10-18 18:30] VITALS: BP 128/64; TEMP 97.4; O2SAT 95
[2019-10-18] MEDS ORDERED: levETIRAcetam 250 MG TAB PO SCH (21:00)
--- NOTE | 2019-10-26 09:31 | DS ---
SUPERVISING PHYSICIAN: Servando Gaming MD ADMISSION DIAGNOSIS: 1. COVID-19 pneumonitis. 2. Acute chronic obstructive pulmonary disease exacerbation with bilateral pneumonia secondary to #1. 3. Neutropenia likely secondary to ongoing COVID infection with an elevated D-dimer and C-reactive protein currently on Eliquis. 4. History of dementia. 5. History of previous transient ischemic attack without any residual effects. 6. History of hypertension, mildly hypertensive on admission. DISCHARGE DIAGNOSIS: 1. COVID-19 pneumonitis. 2. Acute chronic obstructive pulmonary disease exacerbation with bilateral pneumonia secondary to #1 with elevating C-reactive protein despite treatment. 3. Neutropenia likely secondary to ongoing COVID infection with an elevated D-dimer and C-reactive protein currently on Eliquis. 4. History of dementia. 5. History of previous transient ischemic attack without any residual effects. 6. History of hypertension, mildly hypertensive on admission. REASON FOR HOSPITALIZATION: Mr. Cook is an 84 year-old male patient who has a reported history of hypertension, chronic obstructive pulmonary disease and dementia. The patient is a resident of a usp in [place], [place] who has dementia and is a very poor historian, therefore all of the History of Present Illness and review of systems were obtained through a review of the Emergency Room notes and usp records. Mr. Cook resides at the usp at [facility] in [place], [place]. He has a history of recurrent shortness of breath and hypoxia. He was actually sent to [facility] on 10/04/19 for a questionable seizure after he was seen in the Emergency Room in [place], [place]. He was treated for COVID pneumonia when he was found to have positive COVID test and was noted to have underlying community acquired pneumonia as well as bronchitis. He was treated with steroids, antibiotics and then discharged back to [place], [place] at the usp on the . On 10/10/19, he had a seizure-like activity with no details noted, was taken back to the Emergency Room in [place] where he was found to be mildly hypoxic and hypertensive. He was treated and then transported back to the usp. On 10/11/19, he continued to have hypoxia noted in the usp in the 70s with some hypotension and then after discussion was taken to the Emergency Room there and again transported back to the usp after they found that he had normal vital signs. Once again at the usp after discharge from the Emergency Room there in [place], he again had some episodes of hypoxia and hypotension. The usp at that point put him a transport van and took him to the Emergency Room at [facility] where he was seen and evaluated. He was once again found to be positive for COVID-19. His initial vital signs on the Emergency Room did show that he was satting 78% even with 2 liters nasal cannula. He had some mild hypotension with a blood pressure of 100/42 with a heart rate of 46 requiring nonrebreather showing 92% on 10 liters on the nonrebreather. His initial workup in the Emergency Room did show that he had neutropenia with a white count of 2.7 with decreased lymphocytes. Coagulation studies showed he had an elevated D-dimer at 750, fibrinogen was normal at 352, PTT was normal at 223. Chemistries showed that he had a BUN of 45, creatinine 1.5. Liver functions were showing some elevation of his AST and ALT. LDH was also elevated at 269 as well as C reactive protein at 4.1, but his troponin was 0.04. He was notably hypoxic and with a positive COVID and underlying pneumonia that was once again seen on x-ray that showed per radiology interpretation bibasilar lung opacities concerning for viral pneumonitis. He is going to be admitted to the COVID-19 floor and started on treatment for underlying COVID pneumonia having failed to respond to previous treatment plan. He was already on Eliquis at the usp. He is in stable condition at time of admission and code status is a DNR. LABORATORY: Initial CBC showed white count 4,300. At discharge, it was 5,900. Hemoglobin and hematocrit were stable at 10.8 and 31.9. Platelet count 226,000. Differential did show decreased lymphocytes without an obvious left shift. Coagulation studies showed his D-dimer initially was as low as 392 and went up to 1990, but was trending down to baseline at 44 prior discharge. Fibrinogen was also trending down from a maximum of 497 down to 425 prior to discharge. PT-T was normal. C-reactive protein initially was 4.1, went up to a maximum of 10.4 but was trending down to 5.1 prior to discharge. His troponins are within normal limits. CPK levels were within normal limits. Liver functions were also within normal limits. Creatinine 1.37 on discharge. Calcium 8.1, magnesium 2.1. Urinalysis was all within normal limits. Vancomycin trough was 20.3. Group A strep was negative. MICROBIOLOGY: Blood cultures remained negative after 5 days. Beta hemolytic strep culture was negative. Respiratory panel on admission was positive for COVID-19. All other viral and bacterial targets were not detected. RADIOLOGY: Chest x-ray initially on admission showed bibasilar lung opacities concerning for viral pneumonitis. His final x-ray on 10/18/19 showed slightly interval improvement of bilateral patchy airspace opacities. 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 Recommendation at that point was for surgical consultation. There was severe emphysema with ground glass airspace opacities which could be seen in viral pneumonia to include COVID-19. HOSPITAL COURSE: Mr. Cook was admitted for COVID pneumonitis. He was treated per protocol with Decadron, azithromycin, Rocephin and anticoagulation with Lovenox. He was given Decadron as well as already on Eliquis from home. He was also put on vancomycin given that he was from a long-term care facility. He did show good clinical improvement with his labs showing a trend to baseline levels as noted above. He had aggressive pulmonary hygiene. Vital signs were stable with temperature 97.4 on discharge, pulse 64, blood pressure 126/64. He was maintaining O2 saturations anywhere from 95-98% on 2 liters nasal cannula. Mr. Cook responded to treatment and was felt to be clinically stabilized well enough to continue with outpatient management. Therefore, he was discharged back to [facility]. PLAN: Mr. Cook was discharged to return back to [facility]. He was to resume his previous nursing and diet orders. He was to take medications to include azithromycin 500 mg for 3 days, Omnicef 300 mg b.i.d. for 7 days, Decadron 6 mg daily for 7 days, doxycycline 100 mg b.i.d. for 7 days. He was to continue all previous medications as instructed by his discharge MAR. He was to wear oxygen via nasal cannula to titrate to keep SPO2 between 92 and 96%. He was to followup with Dr. Gomez in 1 to 2 weeks and return to the Emergency Department as needed. MEDICATIONS ON DISCHARGE: 1. Align 4 mg twice daily, #30. 2. Azithromycin 500 mg, #3, no refills. 3. Decadron 6 mg, #7, no refills. 4. Cefdinir 300 mg twice daily, #14, no refills. 5. Doxycycline 100 mg q.12h., #14, no refills. CONDITION ON DISCHARGE: Stable and improving. DISPOSITION: The patient was discharged back to [facility]. #[id number]
== END 2019-10-18 16:30 | DRG 177 ==
LOC: ER 20:27 → OBSVTOIN 10-11 00:06 → MS 10-11 00:06
PROVIDERS: ADMIT Nurse Practitioner Family; ATTEND Nurse Practitioner Family
PROC: B32S1ZZ Computerized Tomography (CT Scan) of Right Pulmonary Artery using Low Osmolar Contrast (ICD-10-PCS; principal; 2019-10-15)
PROC: B32T1ZZ Computerized Tomography (CT Scan) of Left Pulmonary Artery using Low Osmolar Contrast (ICD-10-PCS; 2019-10-15)
DX: U07.1 COVID-19 (principal); J12.89 Other viral pneumonia; J44.1 Chronic obstructive pulmonary disease with (acute) exacerbation; I74.11 Embolism and thrombosis of thoracic aorta; R09.02 Hypoxemia; I71.2 Thoracic aortic aneurysm, without rupture; R79.89 Other specified abnormal findings of blood chemistry; F03.90 Unspecified dementia, unspecified severity, without behavioral disturbance, psychotic disturbance, mood disturbance, and anxiety; I10 Essential (primary) hypertension; Z79.01 Long term (current) use of anticoagulants; Z86.73 Personal history of transient ischemic attack (TIA), and cerebral infarction without residual deficits; Z66 Do not resuscitate; Z79.82 Long term (current) use of aspirin; Z79.1 Long term (current) use of non-steroidal anti-inflammatories (NSAID); Z79.899 Other long term (current) drug therapy